=== PATIENT | female | born 1960 ===

== ENCOUNTER 2019-02-25 12:35 | Outpatient (REF) | payer MEDICARE, MEDICAID, SELFPAY ==
[2019-02-25 21:35] LABS: Anion Gap 5.8 mmol/L (3-11); BUN 9 mg/dL (7-18); CO2 31.2 mmol/L (21.0-32.0); CREATININE 0.59 mg/dL (0.55-1.02); Calcium 10.1 mg/dL (8.5-10.1); Chloride 103 mmol/L (98-107); Glucose 106 mg/dL (74-106); Hemoglobin A1C 6.4 % (3.8-5.6); Potassium 5.2 mmol/L (3.5-5.1); Sodium 140 mmol/L (136-145)
== END 2019-02-25 12:55 ==
LOC: NCHCN 12:35
PROVIDERS: PCP Nurse Practitioner Community Health; Visit Provider Nurse Practitioner Community Health
DX: R53.82 Chronic fatigue, unspecified (principal); R73.09 Other abnormal glucose
CPT/HCPCS: 80048; 83036

== ENCOUNTER 2019-03-19 14:02 | Outpatient (REF) | payer MEDICARE, MEDICAID, SELFPAY ==
[2019-03-19 19:55] LABS: Abs Immature Grans 0.01 k/cumm (0.0-0.09); Absolute Basophil Count 0.01 k/cumm (0.0-0.2); Absolute Eosinophil Count 0.11 k/cumm (0.0-0.7); Absolute Lymphocyte Count 1.37 k/cumm (1.2-3.4); Absolute Monocyte Count 0.62 k/cumm (0.11-0.7); Basophils % 0.1; Eosinophils % 1.4; HCT 43.8 % (36.0-46.0); HGB 14.7 g/dL (12.0-15.5); Immature Grans % 0.1 %; Mean Corp. HGB Concentration 33.6 g/dL (32.0-36.0); Mean Corpuscular Hemoglobin 29.4 pg (27.0-33.0); Mean Corpuscular Volume 87.6 fL (80-95); Mean Platelet Volume 10.9 fL (8.0-11.0); Monocytes % 8.1; Neutrophils % 72.3; Platelet Count 227 x1000/uL (130-400); RBC Distribution Width 12.8 % (11.7-14.6); White Blood Cell Count 7.62 k/cumm (4.4-10.8)
[2019-03-19 20:41] LABS: Cholesterol 289 mg/dL (<200)
[2019-03-19 20:55] LABS: Iron 91 ug/dL (50-170); Total Iron Binding Capacity 338 ug/dL (250-450); Transferrin Sat 27 % (15-50)
[2019-03-19 21:22] LABS: ALT 28 U/L (14-59); AST 16 U/L (15-37); Albumin 4.3 g/dL (3.4-5.0); Alkaline Phosphatase 73 U/L (46-116); Anion Gap 11.2 mmol/L (3-11); Bilirubin, Total 0.4 mg/dL (0.2-1.0); CO2 26.8 mmol/L (21.0-32.0); CREATININE 0.58 mg/dL (0.55-1.02); Calcium 9.6 mg/dL (8.5-10.1); Chloride 100 mmol/L (98-107); Ferritin 242 ng/mL (8-252); Glucose 109 mg/dL (74-106); Potassium 4.1 mmol/L (3.5-5.1); Sodium 138 mmol/L (136-145); Total Protein 7.1 g/dL (6.4-8.2); Vitamin B12 971 pg/mL (193-986)
[2019-03-19 21:51] LABS: BUN 10 mg/dL (7-18)
[2019-03-22 09:48] LABS: CA 125 <3 U/mL (<30)
[2019-03-22 12:51] LABS: Vitamin D 25 Total 45.5 ng/ml (30-100)
== END 2019-03-19 14:22 ==
LOC: NCHCN 14:02
PROVIDERS: PCP Nurse Practitioner Community Health; Visit Provider Nurse Practitioner Community Health
DX: R19.09 Other intra-abdominal and pelvic swelling, mass and lump (principal); D39.10 Neoplasm of uncertain behavior of unspecified ovary
CPT/HCPCS: 80053; 82306; 86304; 82465; 82607; 82728; 83540; 83550; 85025

== ENCOUNTER 2019-12-27 12:54 | Outpatient (REF) | payer MEDICARE, MEDICAID, SELFPAY ==
[2019-12-27 21:13] LABS: HCT 42.1 % (36.0-46.0); HGB 13.7 g/dL (11.2-15.7); MCH 29.8 pg (27.0-33.0); MCHC 32.5 % (32.0-36.0); MCV 91.7 fL (80-95); MPV 10.9 fL (8.0-11.0); Platelet Count 221 10^3/uL (130-400); RBC 4.59 10^6/uL (3.93-5.22); RDW 12.2 % (11.7-14.6); RDW-SD 41.1 fL; WBC 5.55 10^3/uL (4.4-10.8)
[2019-12-27 21:42] LABS: Hemoglobin A1C 5.8 % (<5.7)
[2019-12-27 21:47] LABS: Anion Gap 8.7 mmol/L (3-11); BUN 8 mg/dL (7-18); CO2 28.3 mmol/L (21.0-32.0); CREATININE 0.58 mg/dL (0.55-1.02); Calcium 9.4 mg/dL (8.5-10.1); Chloride 101 mmol/L (98-107); Glucose 83 mg/dL (74-106); Potassium 4.1 mmol/L (3.5-5.1); Sodium 138 mmol/L (136-145); TSH (W/Ref FT4) 1.22 uIU/mL (0.36-3.74); Vitamin B12 1454 pg/mL (193-986)
== END 2019-12-27 13:14 ==
LOC: NCHCN 12:54
PROVIDERS: PCP Nurse Practitioner Community Health; Visit Provider Nurse Practitioner Community Health
DX: R73.09 Other abnormal glucose (principal); R53.82 Chronic fatigue, unspecified; R73.03 Prediabetes
CPT/HCPCS: 80048; 85027; 82607; 83036; 84443

== ENCOUNTER 2020-08-16 17:29 | Outpatient (REF) | payer MEDICARE, MEDICAID, SELFPAY ==
[2020-08-16 22:26] LABS: Vitamin B12 462 pg/mL (193-986)
[2020-08-17 05:32] LABS: Vitamin D 25 Total 50.7 ng/mL (30-100)
== END 2020-08-16 17:30 | disposition home or self-care (01) ==
LOC: NCHCN 17:29
PROVIDERS: PCP Nurse Practitioner Community Health; Visit Provider Nurse Practitioner Community Health
DX: E67.8 Other specified hyperalimentation (principal); Z86.39 Personal history of other endocrine, nutritional and metabolic disease
CPT/HCPCS: 82306; 82607

== ENCOUNTER 2021-01-25 15:27 | Outpatient (REF) | payer MEDICARE, MEDICAID, SELFPAY ==
[2021-01-25 21:31] LABS: HCT 39.7 % (36.0-46.0); MCH 30.2 pg (27.0-33.0); MCHC 32.7 % (32.0-36.0); MCV 92.3 fL (80-95); MPV 10.7 fL (8.0-11.0); Platelet Count 209 10^3/uL (130-400); RDW 12.3 % (11.7-14.6); RDW-SD 42.4 fL; WBC 5.47 10^3/uL (4.4-10.8)
[2021-01-25 21:37] LABS: Anion Gap 6.6 mmol/L (3-11); BUN 7 mg/dL (7-18); CO2 29.4 mmol/L (21.0-32.0); CREATININE 0.7 mg/dL (0.55-1.02); Calcium 9.1 mg/dL (8.5-10.1); Chloride 104 mmol/L (98-107); Glucose 109 mg/dL (74-106); Potassium 4.1 mmol/L (3.5-5.1); Sodium 140 mmol/L (136-145)
[2021-01-29 10:10] LABS: CA 125 4 U/mL (<30)
== END 2021-01-25 15:28 | disposition home or self-care (01) ==
LOC: LBN 15:27
PROVIDERS: PCP Nurse Practitioner Community Health; Visit Provider Obstetrics & Gynecology
DX: N94.89 Other specified conditions associated with female genital organs and menstrual cycle (principal); R19.09 Other intra-abdominal and pelvic swelling, mass and lump
CPT/HCPCS: 80048; 85027; 86304

== ENCOUNTER 2023-07-24 20:35 | Outpatient (REF) | payer MEDICARE, MEDICAID, SELFPAY ==
[2023-07-24 21:00] LABS: Hemoglobin A1C 5.6 % (<5.7)
[2023-07-24 21:04] LABS: ALT 18 U/L (14-59); AST 16 U/L (15-37); Albumin 4.1 g/dL (3.4-5.0); Alkaline Phosphatase 78 U/L (46-116); Anion Gap 7.3 mmol/L (3-11); BUN 11 mg/dL (7-18); Bilirubin, Total 0.3 mg/dL (0.2-1.0); CO2 30.7 mmol/L (21.0-32.0); CREATININE 0.5 mg/dL (0.55-1.02); Calcium 9.4 mg/dL (8.5-10.1); Calculated LDL 122 mg/dL (<100); Chloride 101 mmol/L (98-107); Cholesterol 221 mg/dL (<200); Estimated GFR 104.67 (mL/min/1.73m2); Glucose 106 mg/dL (74-106); HDL Cholesterol 65 mg/dL (40-60); Potassium 3.8 mmol/L (3.5-5.1); Sodium 139 mmol/L (136-145); Total Protein 7.2 g/dL (6.4-8.2); Triglyceride 172 mg/dL (<150)
== END 2023-07-24 20:36 | disposition home or self-care (01) ==
LOC: NCHCN 20:35
PROVIDERS: PCP Nurse Practitioner Community Health; Visit Provider Family Medicine
DX: E78.5 Hyperlipidemia, unspecified (principal); R73.03 Prediabetes
CPT/HCPCS: 80053; 80061; 83036